=== PATIENT | female | born 1990 | race Caucasian/White ===

== ENCOUNTER → 2019-08-01 14:40 | Observation (INO) ==
[2019-08-01 12:08] LABS: Basophils % 0.3 %; Eosinophils # 0.1 K/mcL (0.0-0.6); Hemoglobin 12.7 g/dL (11.5-15.4); Immature Granulocytes % 0.7 % (0-4); Lymphocytes # 2.1 K/mcL (0.6-4.6); Lymphocytes % 22.2 %; Mean Corpuscular HGB Conc 34.3 g/dL (31.6-35.5); Mean Corpuscular Hemoglobin 27.9 pg (28.0-33.3); Mean Corpuscular Volume 81.3 fL (83.0-100.0); Mean Platelet Volume 10.6 fL (9.4-12.4); Monocytes # 0.6 K/mcL (0.0-1.3); Monocytes % 6.2 %; Neutrophils # 6.4 K/mcL (1.6-8.9); Platelet Count 237 K/mcL (140-400); Red Blood Count 4.55 M/mcL (3.82-4.97); Red Cell Distribution Width 12.9 % (11.5-14.5); Segmented Neutrophils % 69.6 %; White Blood Count 9.2 K/mcL (4.3-11.1)
[2019-08-01 12:48] LABS: Alanine Aminotransferase 11 Units/L (7-52); Aspartate Amino Transferase 11 Units/L (13-39); BUN/Creatinine Ratio 24 (6-26); Blood Urea Nitrogen 14 mg/dL (6-20); Lactate Dehydrogenase 123 Units/L (140-271); Uric Acid 2.7 mg/dL (2.3-7.6); eGFR For African Americans > 60 (> 60); eGFR For Non-African Americans > 60 (> 60)
[2019-08-01 12:54] LABS: Protein/Creatinine Ratio,Urine 0.21 mg/mg (0.00-0.20)
[2019-08-01 13:44] LABS: Trichomonas DNA Not Detected (Not Detect)
[2019-08-01 13:45] LABS: Candida DNA Not Detected (Not Detect); Gardnerella DNA Not Detected (Not Detect)
[~2019-08-01 14:40] MED LIST: Ringers Solution, Lactated 1,000 ML IVC SCH
== END | disposition home or self-care (01) ==
LOC: 1NENULAB
PROVIDERS: ADMIT Advanced Practice Midwife; ATTEND Advanced Practice Midwife

== ENCOUNTER → 2019-08-13 20:50 | Observation (INO) ==
[2019-08-13 19:29] LABS: Basophils % 0.3 %; Eosinophils % 0.4 %; Hematocrit 37.2 % (35.3-44.9); Hemoglobin 12.5 g/dL (11.5-15.4); Immature Granulocytes % 0.4 % (0-4); Lymphocytes # 1.1 K/mcL (0.6-4.6); Lymphocytes % 15.1 %; Mean Corpuscular HGB Conc 33.6 g/dL (31.6-35.5); Mean Corpuscular Hemoglobin 27.5 pg (28.0-33.3); Mean Corpuscular Volume 81.8 fL (83.0-100.0); Mean Platelet Volume 10.5 fL (9.4-12.4); Monocytes # 0.8 K/mcL (0.0-1.3); Monocytes % 11.7 %; Platelet Count 222 K/mcL (140-400); Red Blood Count 4.55 M/mcL (3.82-4.97); Red Cell Distribution Width 12.7 % (11.5-14.5); Segmented Neutrophils % 72.1 %
[2019-08-13 19:43] LABS: Protein/Creatinine Ratio,Urine 0.21 mg/mg (0.00-0.20)
[2019-08-13 19:47] LABS: Alanine Aminotransferase 15 Units/L (7-52); Aspartate Amino Transferase 15 Units/L (13-39); BUN/Creatinine Ratio 16 (6-26); Blood Urea Nitrogen 11 mg/dL (6-20); Lactate Dehydrogenase 106 Units/L (140-271); Uric Acid 3.1 mg/dL (2.3-7.6); eGFR For African Americans > 60 (> 60); eGFR For Non-African Americans > 60 (> 60)
== END | disposition home or self-care (01) ==
LOC: 1NENULAB
PROVIDERS: ADMIT Advanced Practice Midwife; ATTEND Advanced Practice Midwife

== ENCOUNTER 2019-09-08 13:01 | Inpatient (IN) ==
[~2019-09-08 13:01] MED LIST changes: +Famotidine 20 MG/2 ML VIAL IVP PRN; +Metoclopramide 10 MG/2 ML VIAL IVP PRN; +Naloxone 0.4 MG/ML INJ IVP PRN; +Ondansetron 4 MG/2 ML VIAL IVP PRN; -Ringers Solution, Lactated 1,000 ML IVC SCH
[2019-09-08 13:46] LABS: Basophils % 0.4 %; Eosinophils # 0.1 K/mcL (0.0-0.6); Eosinophils % 0.9 %; Hematocrit 39.5 % (35.3-44.9); Hemoglobin 13.5 g/dL (11.5-15.4); Immature Granulocytes % 0.4 % (0-4); Lymphocytes # 2.3 K/mcL (0.6-4.6); Mean Corpuscular HGB Conc 34.2 g/dL (31.6-35.5); Mean Corpuscular Hemoglobin 27.6 pg (28.0-33.3); Mean Corpuscular Volume 80.6 fL (83.0-100.0); Mean Platelet Volume 11.4 fL (9.4-12.4); Monocytes # 0.5 K/mcL (0.0-1.3); Monocytes % 5.2 %; Neutrophils # 6.9 K/mcL (1.6-8.9); Platelet Count 223 K/mcL (140-400); Red Cell Distribution Width 12.9 % (11.5-14.5); Segmented Neutrophils % 70.1 %; White Blood Count 9.8 K/mcL (4.3-11.1)
[2019-09-08 14:02] LABS: Amphetamine Screen,Urine Negative ng/mL (Cutoff=1000); Barbiturate Screen,Urine Negative ng/mL (Cutoff=200); Benzodiazepines Screen,Urine Negative ng/mL (Cutoff=200); Cannabinoid Screen,Urine Negative ng/mL (Cutoff = 50); Cocaine Screen,Urine Negative ng/mL (Cutoff= 300); Creatinine,Urine 181 mg/dL; Opiate Screen,Urine Negative ng/mL (Cutoff=300); Phencyclidine Screen,Urine Negative ng/mL (Cutoff=25); Protein/Creatinine Ratio,Urine 0.98 mg/mg (0.00-0.20)
[2019-09-08] MEDS: Ringers Solution, Lactated 1,000 ML IVC SCH ×2 (14:02→18:42)
[2019-09-08 14:07] LABS: Alanine Aminotransferase 14 Units/L (7-52); Aspartate Amino Transferase 13 Units/L (13-39); BUN/Creatinine Ratio 29 (6-26); Blood Urea Nitrogen 25 mg/dL (6-20); Lactate Dehydrogenase 124 Units/L (140-271); eGFR For African Americans > 60 (> 60); eGFR For Non-African Americans > 60 (> 60)
[2019-09-08] MEDS ORDERED: EPHEDrine 50 MG/ML VIAL IVP PRN (19:38)
[2019-09-08] MEDS ORDERED: Epidural Premix (fent/bupiv) 110 ML EP SCH (19:45)
[2019-09-08] MEDS: *HR* Metformin 500 MG TABLET PO SCH (20:25)
[2019-09-09] MEDS: Ringers Solution, Lactated 1,000 ML IVC SCH (02:19)
[2019-09-09] MEDS ORDERED: Famotidine 20 MG/2 ML VIAL IVP STA (02:40)
[2019-09-09] MEDS ORDERED: miSOPROStoL 100 MCG TABLET PO ONE (04:00)
[2019-09-09] MEDS ORDERED: 0.9 % Sodium Chloride 2,000 ML ONE (08:04)
[2019-09-09] MEDS ORDERED: *HR* Oxytocin 10 UNIT/ML VIAL IM ONE ×3 (08:20→16:08)
[2019-09-09] MEDS ORDERED: Ringers Solution, Lactated 1,000 ML ONE ×2 (08:20→16:08)
[2019-09-09] MEDS ORDERED: EPHEDrine 50 MG/ML VIAL ONE (08:24)
[2019-09-09] MEDS ORDERED: *HR* Phenylephrine 10 MG/ML VIAL ONE (08:25)
[2019-09-09] MEDS: *HR* Metformin 500 MG TABLET PO SCH (09:03)
[2019-09-09] MEDS ORDERED: 0.9 % Sodium Chloride 1,000 ML ONE (14:37)
[2019-09-09] MEDS ORDERED: Dexamethasone 4 MG/ML VIAL ONE (15:20)
[2019-09-09] MEDS ORDERED: Ondansetron 4 MG/2 ML VIAL ONE (15:20)
[2019-09-09] MEDS ORDERED: *HR* Succinylcholine 200 MG/10 ML VIAL IVP ONE (15:20)
[2019-09-09] MEDS ORDERED: *HR* HYDROMORPHONE 2 MG/ML VIAL ONE (15:25)
[2019-09-09] MEDS ORDERED: *HR* Promethazine 25 MG/ML VIAL IVP PRN (15:54)
[2019-09-09] MEDS ORDERED: Ondansetron 4 MG/2 ML VIAL IVP ONE (15:54)
[2019-09-09] MEDS ORDERED: *HR* HYDROmorphone PF 0.5 MG/0.5 ML SYRINGE IVP PRN (15:54)
[2019-09-09] MEDS ORDERED: Acetaminophen IV 1,000 MG/100 ML INFUS..BTL IVPB ONE (15:55)
[2019-09-09] MEDS ORDERED: Acetaminophen IV 1,000 MG/100 ML INFUS..BTL ONE (16:20)
[2019-09-09] MEDS ORDERED: Aminoglycoside Consult 1 EACH MC ONE (18:58)
[2019-09-09] MEDS ORDERED: *HR* OxyCODONE/APAP 5/325 TABLET PO PRN (19:59)
[2019-09-09] MEDS ORDERED: Ibuprofen 600 MG TABLET PO PRN (19:59)
[2019-09-09] MEDS ORDERED: D5% in Water 1,000 ML IVC PRN (19:59)
[2019-09-09] MEDS ORDERED: Oxytocin 20 units/ LR 1000 mL 20 UNIT/1,000 ML BAG IVC SCH (19:59)
[2019-09-09] MEDS ORDERED: Rho Immune Globulin 1,500 UNIT SYRINGE IM ONE (19:59)
[2019-09-09] MEDS ORDERED: *HR* Dextrose 50 % in Water (Syg) 50 ML SYRINGE IVP PRN (19:59)
[2019-09-09] MEDS ORDERED: Ondansetron 4 MG/2 ML VIAL IVP PRN (19:59)
[2019-09-09] MEDS ORDERED: Simethicone 80 MG TAB.CHEW PO PRN (19:59)
[2019-09-09] MEDS ORDERED: Sennosides 8.6 MG TABLET PO PRN (19:59)
[2019-09-09] MEDS ORDERED: Metoclopramide 10 MG/2 ML VIAL IVP PRN (19:59)
[2019-09-09] MEDS ORDERED: 0.9 % Sodium Chloride 1,000 ML IVC SCH (19:59)
[2019-09-09] MEDS ORDERED: NON-FORMULARY MEDICATION 1 EACH EACH (Ondansetron Hcl [Zofran] 4 MG) PO PRN (19:59)
[2019-09-09] MEDS ORDERED: Dextrose Gel 15 GM/37.5 ML TUBE PO PRN ×2 (19:59)
[2019-09-09] MEDS ORDERED: Ketorolac 30 MG/ML VIAL IVP SCH (21:00)
[2019-09-09] MEDS ORDERED: Acetaminophen 325 MG TABLET PO PRN (21:18)
[2019-09-09] MEDS: Ibuprofen 600 MG TABLET PO SCH (21:54)
[2019-09-10 06:01] LABS: Basophils % 0.2 %; Eosinophils % 0.1 %; Hemoglobin 9.5 g/dL (11.5-15.4); Immature Granulocytes % 0.5 % (0-4); Lymphocytes # 2.2 K/mcL (0.6-4.6); Mean Corpuscular HGB Conc 32.8 g/dL (31.6-35.5); Mean Corpuscular Hemoglobin 27.1 pg (28.0-33.3); Mean Corpuscular Volume 82.9 fL (83.0-100.0); Mean Platelet Volume 10.9 fL (9.4-12.4); Monocytes # 0.9 K/mcL (0.0-1.3); Monocytes % 8.8 %; Neutrophils # 6.8 K/mcL (1.6-8.9); Platelet Count 175 K/mcL (140-400); Red Cell Distribution Width 13.1 % (11.5-14.5); Segmented Neutrophils % 68.4 %
[2019-09-10] MEDS: Ibuprofen 600 MG TABLET PO SCH ×3 (06:14→17:35)
[2019-09-10] MEDS: Prenatal Vit/FA 1 EACH TABLET PO SCH (08:27)
[2019-09-10] MEDS: *HR* Metformin 500 MG TABLET PO SCH ×2 (08:28→17:35)
[2019-09-10] MEDS: *HR* GlyBURIDE 2.5 MG TABLET PO SCH ×3 (08:28→17:35)
[2019-09-10] MEDS ORDERED: Ibuprofen 600 MG TABLET PO SCH (09:00)
[2019-09-10] MEDS: metroNIDAZOLE 500 MG TABLET PO SCH ×2 (10:32→19:44)
[2019-09-10] MEDS: cephALEXin 500 MG CAPSULE PO SCH ×3 (10:33→19:44)
[2019-09-10] MEDS ORDERED: Rho Immune Globulin 1,500 UNIT SYRINGE IM ONE (12:09)
[2019-09-11] MEDS: Ibuprofen 600 MG TABLET PO SCH ×3 (00:35→14:52)
[2019-09-11] MEDS: cephALEXin 500 MG CAPSULE PO SCH ×2 (08:00→14:52)
[2019-09-11] MEDS: metroNIDAZOLE 500 MG TABLET PO SCH (08:00)
[2019-09-11] MEDS: Prenatal Vit/FA 1 EACH TABLET PO SCH (08:00)
[2019-09-11] MEDS: *HR* Metformin 500 MG TABLET PO SCH (08:01)
[2019-09-11] MEDS: *HR* GlyBURIDE 2.5 MG TABLET PO SCH ×2 (08:02→12:14)
[2019-09-11] MEDS ORDERED: *HR* GlyBURIDE 2.5 MG TABLET PO STA (12:19)
[2019-09-11 15:48] VITALS: BP 126/66
[2019-09-11] MEDS ORDERED: *HR* Metformin 500 MG TABLET PO SCH (17:00)
[2019-09-11] MEDS ORDERED: *HR* GlyBURIDE 2.5 MG TABLET PO SCH (17:00)
== END 2019-09-11 18:59 | disposition home or self-care (01) | DRG 540 ==
LOC: 1NENULAB → 1NENUOBS 09-09 19:58
PROVIDERS: ADMIT Registered Nurse; ATTEND Registered Nurse

== ENCOUNTER → 2021-11-07 22:27 | Observation (INO) ==
[2021-11-07 21:47] LABS: Bilirubin,Urine Negative (Negative); Blood,Urine Negative (Negative); Clarity,Urine Clear (Clear); Color,Urine Light-Yellow (Yellow); Glucose,Urine (UA) 100 mg/dL (Normal); Ketones,Urine Negative (Negative); Leukocyte Esterase,Urine Negative (Negative); Mucus,Urine Few per lpf (None-Few); Nitrite,Urine Negative (Negative); PH,Urine 6.5 pH Units (5.0-8.0); Protein,Urine 30 mg/dL (Neg-Trace); RBC,Urine 0-3 per hpf (0-3); Specific Gravity,Urine 1.025 (1.010-1.025); Squamous Epithelial Cell,Urine Moderate per hpf (None-Few); Urobilinogen,Urine Normal (Normal); WBC,Urine 0-3 per hpf (0-3)
== END | disposition home or self-care (01) ==
LOC: 1NENULAB
PROVIDERS: ADMIT Advanced Practice Midwife; ATTEND Advanced Practice Midwife

== ENCOUNTER → 2021-12-02 22:05 | Observation (INO) ==
[2021-12-02 21:23] LABS: Bacteria,Urine Few per hpf (None-Few); Bilirubin,Urine Negative (Negative); Blood,Urine Trace (Negative); Clarity,Urine Clear (Clear); Color,Urine Yellow (Yellow); Glucose,Urine (UA) 30 mg/dL (Normal); Ketones,Urine Trace mg/dL (Negative); Leukocyte Esterase,Urine Negative (Negative); Mucus,Urine Few per lpf (None-Few); Nitrite,Urine Negative (Negative); Protein,Urine 100 mg/dL (Neg-Trace); RBC,Urine 0-3 per hpf (0-3); Specific Gravity,Urine 1.028 (1.010-1.025); Squamous Epithelial Cell,Urine Moderate per hpf (None-Few); Urobilinogen,Urine Normal (Normal)
== END | disposition home or self-care (01) ==
LOC: 1NENULAB
PROVIDERS: ADMIT Obstetrics & Gynecology; ATTEND Obstetrics & Gynecology

== ENCOUNTER → 2022-01-15 15:45 | Observation (INO) | END | disposition home or self-care (01) | LOC: 1NENULAB | PROVIDERS: ADMIT Obstetrics & Gynecology; ATTEND Obstetrics & Gynecology ==

== ENCOUNTER → 2022-01-21 13:16 | Observation (INO) ==
[2022-01-21 11:15] LABS: Basophils % 0.3 %; Eosinophils % 0.4 %; Hematocrit 38.4 % (35.3-44.9); Hemoglobin 12.7 g/dL (11.5-15.4); Immature Granulocytes % 0.4 % (0-4); Lymphocytes # 2.5 K/mcL (0.6-4.6); Lymphocytes % 32.1 %; Mean Corpuscular HGB Conc 33.1 g/dL (31.6-35.5); Mean Corpuscular Volume 81.5 fL (83.0-100.0); Mean Platelet Volume 11.4 fL (9.4-12.4); Monocytes # 0.6 K/mcL (0.0-1.3); Monocytes % 7.4 %; Neutrophils # 4.6 K/mcL (1.6-8.9); Platelet Count 231 K/mcL (140-400); Red Blood Count 4.71 M/mcL (3.82-4.97); Red Cell Distribution Width 13.5 % (11.5-14.5); Segmented Neutrophils % 59.4 %; White Blood Count 7.7 K/mcL (4.3-11.1)
[2022-01-21 11:28] LABS: Alanine Aminotransferase 21 Units/L (7-52); Aspartate Amino Transferase 17 Units/L (13-39); BUN/Creatinine Ratio 23 (6-26); Blood Urea Nitrogen 20 mg/dL (6-20); Lactate Dehydrogenase 142 Units/L (140-271); Uric Acid 4.3 mg/dL (2.3-7.6); eGFR For African Americans > 60 (> 60); eGFR For Non-African Americans > 60 (> 60)
[2022-01-21 11:33] LABS: Protein/Creatinine Ratio,Urine 1.29 mg/mg (0.00-0.20)
[2022-01-21 11:41] LABS: Thyroid Stimulating Hormone 7.708 mcIU/mL (0.340-5.600)
[2022-01-21 12:43] LABS: Bacteria,Urine Few per hpf (None-Few); Bilirubin,Urine Negative (Negative); Blood,Urine Trace (Negative); Clarity,Urine Turbid (Clear); Color,Urine Yellow (Yellow); Glucose,Urine (UA) Normal (Normal); Ketones,Urine Negative (Negative); Leukocyte Esterase,Urine Negative (Negative); Mucus,Urine Few per lpf (None-Few); Nitrite,Urine Negative (Negative); PH,Urine 6.5 pH Units (5.0-8.0); Protein,Urine 200 mg/dL (Neg-Trace); RBC,Urine 0-3 per hpf (0-3); Specific Gravity,Urine 1.023 (1.010-1.025); Squamous Epithelial Cell,Urine Moderate per hpf (None-Few); Urobilinogen,Urine Normal (Normal)
[~2022-01-21 13:16] MED LIST changes: +*HR* Labetalol 20 MG/4 ML SYRINGE IVP ONE; -Famotidine 20 MG/2 ML VIAL IVP PRN; -Metoclopramide 10 MG/2 ML VIAL IVP PRN; +NIFEdipine Immed Rel 10 MG CAPSULE PO ONE; -Naloxone 0.4 MG/ML INJ IVP PRN; -Ondansetron 4 MG/2 ML VIAL IVP PRN
== END | disposition home or self-care (01) ==
LOC: 1NENULAB
PROVIDERS: ADMIT Registered Nurse; ATTEND Registered Nurse

== ENCOUNTER 2022-01-21 16:35 | Inpatient (IN) ==
[2022-01-21] MEDS ORDERED: Metoclopramide 10 MG/2 ML VIAL IVP ONE (16:57)
[2022-01-21] MEDS ORDERED: Ringers Solution, Lactated 1,000 ML IVC ONE (16:57)
[2022-01-21] MEDS ORDERED: Famotidine 20 MG/2 ML VIAL IVP ONE (16:57)
[2022-01-21] MEDS ORDERED: Oxytocin 30 UNIT/503 ML BAG IVC SCH (17:00)
[2022-01-21] MEDS ORDERED: Clindamycin 900 MG/50 ML 900 MG/50 ML IV.SOLN IVPB ONE (17:31)
[2022-01-21] MEDS: Ringers Solution, Lactated 1,000 ML IVC SCH (18:48)
[2022-01-21] MEDS ORDERED: *HR* Midazolam HCl 2 MG/2 ML VIAL ONE (19:51)
[2022-01-21] MEDS ORDERED: *HR* FentaNYL (PF) 100 MCG/2 ML VIAL ONE (19:51)
[2022-01-21] MEDS ORDERED: *HR* Morphine Sulfate/PF 10 MG/10 ML AMPUL ONE (19:51)
[2022-01-21] MEDS ORDERED: dexmedeTOMIDine in 0.9 % NaCL 80 MCG/20 ML MLS ONE (19:51)
[2022-01-21] MEDS ORDERED: Ondansetron 4 MG/2 ML VIAL ONE (19:53)
[2022-01-21] MEDS ORDERED: Ringers Solution, Lactated 1,000 ML ONE (21:31)
[2022-01-21] MEDS ORDERED: Acetaminophen IV 1,000 MG/100 ML BAG IVPB ONE (21:39)
[2022-01-21] MEDS ORDERED: Ketorolac 30 MG/ML VIAL ONE (23:07)
[2022-01-22] MEDS ORDERED: *HR* Labetalol 20 MG/4 ML SYRINGE IVP ONE ×4 (00:37→01:20)
[2022-01-22] MEDS ORDERED: Ondansetron 4 MG/2 ML VIAL IVP PRN (02:30)
[2022-01-22] MEDS ORDERED: *HR* OxyCODONE Immed Rel 5 MG TABLET PO PRN (02:30)
[2022-01-22] MEDS ORDERED: 0.9 % Sodium Chloride 1,000 ML IVC SCH (02:30)
[2022-01-22] MEDS ORDERED: Rho Immune Globulin 1,500 UNIT SYRINGE IM ONE (02:30)
[2022-01-22] MEDS ORDERED: Metoclopramide 10 MG/2 ML VIAL IVP PRN (02:30)
[2022-01-22] MEDS ORDERED: OXYTOCIN/RINGERS LACTATE 10 UNIT/166.6 ML BAG IVC ONE (02:30)
[2022-01-22] MEDS ORDERED: Simethicone 80 MG TAB.CHEW PO PRN (02:30)
[2022-01-22] MEDS ORDERED: Oxytocin 30 UNIT/503 ML BAG IVC SCH (02:30)
[2022-01-22] MEDS ORDERED: Ringers Solution, Lactated 1,000 ML ONE ×2 (02:37→14:23)
[2022-01-22] MEDS: Magnesium Sulf 20 gm/SW 500mL 20 GM/500 ML IV.SOLN IVC SCH ×3 (02:47→22:28)
[2022-01-22] MEDS ORDERED: Calcium Gluconate 1,000 MG/10 ML VIAL ONE (04:30)
[2022-01-22] MEDS: *HR* Enoxaparin 80 MG/0.8 ML SYRINGE SQ SCH ×2 (08:12→21:15)
[2022-01-22] MEDS: *HR* Metformin 500 MG TABLET PO SCH ×2 (08:12→21:09)
[2022-01-22] MEDS: Prenatal Vit/FA 1 EACH TABLET PO SCH (08:12)
[2022-01-22 08:18] LABS: Basophils % 0.2 %; Hematocrit 32.4 % (35.3-44.9); Immature Granulocytes % 0.6 % (0-4); Lymphocytes # 1.5 K/mcL (0.6-4.6); Mean Corpuscular HGB Conc 33.3 g/dL (31.6-35.5); Mean Corpuscular Hemoglobin 27.1 pg (28.0-33.3); Mean Corpuscular Volume 81.4 fL (83.0-100.0); Monocytes # 0.6 K/mcL (0.0-1.3); Monocytes % 5.7 %; Neutrophils # 8.4 K/mcL (1.6-8.9); Platelet Count 192 K/mcL (140-400); Red Blood Count 3.98 M/mcL (3.82-4.97); Red Cell Distribution Width 13.3 % (11.5-14.5); Segmented Neutrophils % 79.5 %; White Blood Count 10.6 K/mcL (4.3-11.1)
[2022-01-22 08:21] LABS: Hemoglobin 10.8 g/dL (11.5-15.4)
[2022-01-22] MEDS ORDERED: Ondansetron 4 MG/2 ML VIAL IVP ONE (12:23)
[2022-01-22 13:08] LABS: Amphetamine Screen,Urine Negative ng/mL (Cutoff=1000); Barbiturate Screen,Urine Negative ng/mL (Cutoff=200); Benzodiazepines Screen,Urine Positive ng/mL (Cutoff=200); Cannabinoid Screen,Urine Negative ng/mL (Cutoff = 50); Cocaine Screen,Urine Negative ng/mL (Cutoff= 300); Opiate Screen,Urine Negative ng/mL (Cutoff=300); Phencyclidine Screen,Urine Negative ng/mL (Cutoff=25)
[2022-01-22] MEDS: Ibuprofen 600 MG TABLET PO SCH ×2 (14:25→20:30)
[2022-01-22] MEDS: Ringers Solution, Lactated 1,000 ML IVC SCH (14:25)
[2022-01-22] MEDS: Acetaminophen 325 MG TABLET PO SCH (20:30)
[2022-01-23] MEDS: Ibuprofen 600 MG TABLET PO SCH ×4 (02:54→19:55)
[2022-01-23] MEDS: Acetaminophen 325 MG TABLET PO SCH ×2 (02:54→19:55)
[2022-01-23 05:00] LABS: Basophils % 0.1 %; Eosinophils % 0.4 %; Hematocrit 29.1 % (35.3-44.9); Hemoglobin 9.6 g/dL (11.5-15.4); Immature Granulocytes % 0.4 % (0-4); Lymphocytes % 21.3 %; Mean Corpuscular Hemoglobin 26.9 pg (28.0-33.3); Mean Corpuscular Volume 81.5 fL (83.0-100.0); Mean Platelet Volume 10.6 fL (9.4-12.4); Monocytes # 0.5 K/mcL (0.0-1.3); Monocytes % 5.9 %; Neutrophils # 6.6 K/mcL (1.6-8.9); Platelet Count 197 K/mcL (140-400); Red Blood Count 3.57 M/mcL (3.82-4.97); Red Cell Distribution Width 13.6 % (11.5-14.5); Segmented Neutrophils % 71.9 %; White Blood Count 9.2 K/mcL (4.3-11.1)
[2022-01-23 05:22] LABS: Alanine Aminotransferase 15 Units/L (7-52); Aspartate Amino Transferase 15 Units/L (13-39); BUN/Creatinine Ratio 19 (6-26); Blood Urea Nitrogen 15 mg/dL (6-20); Lactate Dehydrogenase 184 Units/L (140-271); Uric Acid 4.3 mg/dL (2.3-7.6); eGFR For African Americans > 60 (> 60); eGFR For Non-African Americans > 60 (> 60)
[2022-01-23] MEDS: Prenatal Vit/FA 1 EACH TABLET PO SCH (08:46)
[2022-01-23] MEDS: *HR* Metformin 500 MG TABLET PO SCH ×2 (08:47→19:55)
[2022-01-23] MEDS: *HR* Enoxaparin 80 MG/0.8 ML SYRINGE SQ SCH ×2 (08:47→19:56)
[2022-01-24] MEDS: Acetaminophen 325 MG TABLET PO SCH (06:23)
[2022-01-24] MEDS: Ibuprofen 600 MG TABLET PO SCH (06:24)
[2022-01-24 08:20] VITALS: BP 150/80; PULSE 80; TEMP 98.2; O2SAT 98
[2022-01-24] MEDS: *HR* Enoxaparin 80 MG/0.8 ML SYRINGE SQ SCH (12:53)
[2022-01-24] MEDS ORDERED: Rho Immune Globulin 1,500 UNIT SYRINGE IM ONE (13:12)
== END 2022-01-24 15:10 | disposition home or self-care (01) | DRG 539 ==
LOC: 1NENULAB 16:35 → 1NENUOBS 01-22 05:28
PROVIDERS: ADMIT Obstetrics & Gynecology; ATTEND Obstetrics & Gynecology